=== PATIENT | female | born 1985 ===

== ENCOUNTER 2016-09-09 10:15 | Observation (INO) | payer BC, OTHER ==
[2016-09-05 12:38] VITALS: BMI 24.5
[2016-09-09 12:15] LABS: HEMATOCRIT 38.7 % (34.0-47.0); MEAN CELL VOLUME 85.5 fl (81.0-99.0); MEAN CORPUSCULAR HEMOGLOBIN 28.7 pg (27.0-31.0); MEAN CORPUSCULAR HGB CONC 33.6 g/dL (33.0-37.0); WHITE BLOOD COUNT 5.5 K/uL (4.8-10.8)
[2016-09-09] MEDS ORDERED: Propofol 10 mg/ml Inj (20 ML) ONE (14:09)
[2016-09-09] MEDS ORDERED: Midazolam 2 MG/2 ML VIAL ONE (14:10)
[2016-09-09] MEDS ORDERED: Lidocaine 2% MPF (5 ml) Inj ONE (14:11)
[2016-09-09] MEDS ORDERED: Succinylcholine 200 mg/10 ml Inj IV ONE (14:15)
[2016-09-09] MEDS ORDERED: Rocuronium 10 mg/ml (5 ml) ONE (14:15)
[2016-09-09] MEDS ORDERED: Bupivacaine 0.25%-Epinephrine 1:200,000 (30 ml) Inj ONE (14:16)
[2016-09-09] MEDS ORDERED: Methylene Blue 10 mg/ml (1ml) Inj ONE (14:30)
[2016-09-09] MEDS ORDERED: Vasopressin 20 Units/ml Inj ONE (14:31)
[2016-09-09] MEDS ORDERED: Desflurane Inhalation Anesthetic Liq (240 ml) ONE (16:36)
[2016-09-09] MEDS ORDERED: Neostigmine Methylsulfate 2 MG/2 ML ML IV ONE (16:42)
[2016-09-09] MEDS ORDERED: HYDROmorphone 0.5 mg/0.5 ml ISec IVP PRN (16:56)
[2016-09-09] MEDS ORDERED: DiphenhydrAMINE 50 mg/ml Inj IVP PRN (16:57)
[2016-09-09] MEDS ORDERED: Dexamethasone 4 mg/1 ml ONE (17:01)
[2016-09-09] MEDS ORDERED: HEMOSTATIC MATRIX 10 ML DIS.NEEDLE TOP ONE (17:30)
[2016-09-09] MEDS ORDERED: Lactated Ringer's 500 ML IV ONE (18:00)
[2016-09-09] MEDS ORDERED: Sodium Chloride 0.9% 1,000 ML IV ONE (18:00)
--- NOTE | 2016-09-09 18:02 | PCM.SURG1 ---
Surgeon's Initial Post Op Note - Surgeon's Notes Surgeon: valentine gudino md Lunch Truck Operator: kamila mitchell md Type of Anesthesia: General Endo, Local Pre-Operative Diagnosis: symptomatic fibroid uteurs. Abnormal uterine bleeding. Chronic pelvic pain. chronic anemia Operative Findings: massive fibroid uterus. degenerative myomas. normal bladder and ureters anatomy Post-Operative Diagnosis: symptomatic fibroid uteurs. Abnormal uterine bleeding. Chronic pelvic pain. chronic anemia Operation Performed: Robotic myomectomy > 5 myomas. laparotomy. Chromotubation. Cystoscopy. Detailed Operative Report. This is a 31 years old [place] female with an enlarged fibroid uterus, associated abnormal uterine bleeding and chronic pelvic pain and chronic anemia. Following complete workup at the office which included an ultrasound, as well as Pap smear a decision was made to proceeds with a robotic assisted myomectomy. A decision was made to proceed with robotic assisted myomectomy as conservative management failed and pt reports these symptoms as debilitating and affecting her quality of life. After proper consent was obtained from the patient was taken to the operating room where general anesthesia was obtained without difficulty. She was placed in dorsal lithotomy position her legs were placed in adjustable Mateo stirrups. Careful attention was placed not to over-flex or over -rotate the lower extremities at the hip or the knee joints. She was prepped and draped appropriately for robotic assisted myomectomy. Sanz catheter was inserted under sterile conditions. A standard size V-care uterine manipulator was inserted through the cervix and secured. A local anesthetic solution of quarter percent Marcaine was utilized to infiltrate the skin prior to any skin incision. A total of 15 mL of 0.25% Marcaine was utilized throughout the procedure. While tenting the abdominal wall a Verses needle was inserted through the umbilicus and pneumoperitoneum was obtained without difficulty. A small supra- umbilical 1 cm incision was made with a scalpel and a trocar and sleeve were introduced. Robotic camera was inserted and initial survey of the patient's abdomen revealed massively enlarged fibroid uterus with multiple large myomas extending from the fundal and anterior uterine wall. 3 robotic ports were utilized for this procedure. The first port was on the patient's right side approximately 7 cm above the right superior iliac crest. The second robotic port was inserted approximately 7 cm cephalic to the first port and approximately 9 cm lateral to the camera port. The third robotic port was in the patient's left side approximately 7 cm superior to the left superior iliac crest. An apartment assistant manager port was inserted about 7 cm left lateral to the camera ports. All robotic ports were approximately 7-8 mm in size, the apartment assistant manager and the camera port 1 cm in size. The apartment assistant manager as well as the camera ports were utilized the step trocars system. All trocars were inserted under direct visualization. The patient was placed in Trendelenburg position and the lateral side robotic docking was accomplished. The following instruments were utilized for this procedure: The PK sealing device was inserted on the left robotic port , monopolar mary as well as a Prograsp and robotic tenaculum were utilized on the right side robotic ports. Prior to the initiation of this procedure both ureters along their courses were visualized, peristalsing normally at the level of the pelvic brim. Following meticulous anterolysis, and prior to the excision of the myomas and lysis of adhesions, it was necessary to explore both ureters and their courses in order to avoid structural compromise to ureters. The peritoneum over pelvic sidewall was opened, the ureters were traced from the pelvic brain overlying the bifurcation of the iliac vessels and traced down towards the lower uterine segment bilaterally. Diluted Pitressin solution 40 units in 120 mL of saline was utilized to inject the base of all myomas seen prior to incision. Injection of petressin to the fundal and anterior wall of the uterus was needed to aid in hemostasis. A horizontal incision was made into the anterior uterine wall and an elliptical incision was completed to remove a cluster of large myomas. The incision was closed in multiple layers with 2-0 vlock in continues fashion. Good hemostasis noted. Meticulous and careful enterolysis as well as lysis of adhesions was completed in order to clear the anterior aspects of the uterus. An additional incision was made in the anterior uterine wall to enucleate a cluster of myomas in the anterior wall in a similar fashion following petressin injection to the fibroid capsules. The fundal incision was large to enucleate the large cluster of myomas and the endometrial cavity was entered in the process. Prior to the closure of the uterine wall, a 3-0 vlock was used to approximate the endometrial layer. All specimens were extracted at the end of the case from the patient abdomen and sent to pathology. Chromotubation performed at the end of the case revealed patent tubes bilaterally. Dilute methylene blue solution was injected from the cervix into the endometrial cavity and direct vis of the tubes showed minimal spillage of dye from both tubes. Due to the large myomas and small introitus, a small laparotomy was made to extract the myomas from the abdominal cavity. A small pffenestiel incision was made with a scalpel and carried to the rectus fascia, the fascia was entered in the midline and the incision extended. The rectus muscle and the peritoneal cavity entered. The myomas were all extracted and sent to pathology. The incision was closed in multiple layers. The fascia was closed with a o vycril suture in continuous fashion. The skin was closed with 4-0 monocryl sub Q fashion. FloSeal's as well as Interceed were applied to all incisions. Excellent hemostasis was noted throughout. All skin incisions were closed with skin manuel and Steri-Strips. Dermabond was applied to all incisions. The cameras as well as the apartment assistant manager port were closed in a fascia layer utilizing 2-0 Vicryl in an interrupted fashion. Due to the very close proximity to both ureters and the massive size of this fibroids as well as the distorted pelvic anatomy, a diagnostic cystoscopy was necessary to ascertain bladder and ureters. The Sanz catheter was removed the bladder was distended with approximately 300 mL of normal saline. A 30 cystoscope was inserted and a survey of the bladder perkins as well as ureteral orifices indicated effluxing ureters bilaterally, no compromise was noted to the bladder wall, the trigone as well as the urethra were normal appearing. Prior to incision patient received prophylactic antibiotics, prior to closure sponge lap and needle counts are correct x2. Patient tolerated the procedure well and was taken to recovery room in stable condition. Of note: This was an exceptionally difficult surgical procedure, requiring a high level of expertise in order to complete a large myomatous uterus and to lyse off tight bowel adhesions. Assisted by Dr. Mitchell who was essential to docking, retracting and providing bedside apartment assistant manager tasks during the case. Specimen/Specimens Removed: myomas >5 Estimated Blood Loss: EBL {In ML}: 20 Blood Products Given: N/A Drains Used: No Drains Post-Op Condition: Good Date of Surgery/Procedure: 09/09/16 Time of Surgery/Procedure: 18:02
[2016-09-09] MEDS: Lactated Ringer's 1,000 ML IV SCH (20:53)
[2016-09-10 07:12] LABS: BASO % 0.1 % (0.0-2.0); HEMATOCRIT 34.6 % (34.0-47.0); LYMPH # 0.6 K/uL (1.0-4.3); LYMPH % 5.2 % (20.0-40.0); MEAN CELL VOLUME 86.5 fl (81.0-99.0); MEAN CORPUSCULAR HEMOGLOBIN 28.4 pg (27.0-31.0); MEAN CORPUSCULAR HGB CONC 32.8 g/dL (33.0-37.0); MEAN PLATELET VOLUME 9.4 fl (7.2-11.7); MONO # 0.8 K/uL (0.0-0.8); MONO % 7.2 % (0.0-10.0); NEUT # 9.9 K/uL (1.8-7.0); NEUT % 87.5 % (50.0-75.0); PLATELET COUNT 206 K/uL (130-400); RED CELL DISTRIBUTION WIDTH 20.6 % (11.5-14.5); WHITE BLOOD COUNT 11.3 K/uL (4.8-10.8)
[2016-09-10 07:21] LABS: BLOOD UREA NITROGEN 7 mg/dl (7-17); CALCIUM 8.5 mg/dL (8.4-10.2); CARBON DIOXIDE 25 mmol/L (22-30); CHLORIDE 104 mmol/L (98-107); GFR AFRICAN-AMERICAN > 60; GLUCOSE,RANDOM 133 mg/dL (65-105); POTASSIUM 3.9 MMOL/L (3.6-5.0); SODIUM 140 mmol/l (132-148)
[2016-09-10] MEDS: Oxycodone/Acetaminophen 5/325 mg Tab PO PRN ×4 (08:23→22:02)
[2016-09-10 12:26] LABS: NEUTROPHIL 88 % (42-75); TOTAL CELLS COUNTED 100
[2016-09-10 12:27] LABS: GIANT PLATELETS PRESENT
--- NOTE | 2016-09-10 17:54 | CP.PCM.DIS ---
Provider - Provider Date of Admission: 09/09/16 18:03 Attending physician: Vanessa Ames MD Primary care physician: Teri Davison DO Time Spent in preparation of Discharge (in minutes): 20 Diagnosis - Discharge Diagnosis (1) Fibroid uterus Status: Resolved (2) Myoma Status: Resolved Hospital Course - Lab Results Lab Results: Most Recent Lab Values WBC 11.3 K/uL (4.8-10.8) H D 09/10/16 06:40 RBC 4.00 Mil/uL (3.80-5.20) 09/10/16 06:40 Hgb 11.3 g/dL (12.0-16.0) L 09/10/16 06:40 Hct 34.6 % (34.0-47.0) 09/10/16 06:40 MCV 86.5 fl (81.0-99.0) 09/10/16 06:40 MCH 28.4 pg (27.0-31.0) 09/10/16 06:40 MCHC 32.8 g/dL (33.0-37.0) L 09/10/16 06:40 RDW 20.6 % (11.5-14.5) H 09/10/16 06:40 Plt Count 206 K/uL (130-400) 09/10/16 06:40 MPV 9.4 fl (7.2-11.7) 09/10/16 06:40 Neut % (Auto) 87.5 % (50.0-75.0) H 09/10/16 06:40 Lymph % (Auto) 5.2 % (20.0-40.0) L 09/10/16 06:40 Hettinger % (Auto) 7.2 % (0.0-10.0) 09/10/16 06:40 Eos % (Auto) 0.0 % (0.0-4.0) 09/10/16 06:40 Baso % (Auto) 0.1 % (0.0-2.0) 09/10/16 06:40 Neut # 9.9 K/uL (1.8-7.0) H 09/10/16 06:40 Lymph # 0.6 K/uL (1.0-4.3) L 09/10/16 06:40 Hettinger # 0.8 K/uL (0.0-0.8) 09/10/16 06:40 Eos # 0.0 K/uL (0.0-0.7) 09/10/16 06:40 Baso # 0.0 K/uL (0.0-0.2) 09/10/16 06:40 Neutrophils % (Manual) 88 % (42-75) H 09/10/16 06:40 Lymphocytes % (Manual) 8 % (20-50) L 09/10/16 06:40 Monocytes % (Manual) 4 % (0-10) 09/10/16 06:40 Toxic Granulation Present 09/10/16 06:40 Platelet Estimate Normal (NORMAL) 09/10/16 06:40 Giant Platelets Present 09/10/16 06:40 Hypochromasia (manual) Slight 09/10/16 06:40 Anisocytosis (manual) Moderate 09/10/16 06:40 Ovalocytes Slight 09/10/16 06:40 Sodium 140 mmol/l (132-148) 09/10/16 06:40 Potassium 3.9 MMOL/L (3.6-5.0) 09/10/16 06:40 Chloride 104 mmol/L (98-107) 09/10/16 06:40 Carbon Dioxide 25 mmol/L (22-30) 09/10/16 06:40 Anion Gap 15 (10-20) 09/10/16 06:40 BUN 7 mg/dl (7-17) 09/10/16 06:40 Creatinine 0.6 mg/dL (0.7-1.2) L 09/10/16 06:40 Est GFR ( Amer) > 60 09/10/16 06:40 Est GFR (Non-Af Amer) > 60 09/10/16 06:40 Random Glucose 133 mg/dL (65-105) H 09/10/16 06:40 Calcium 8.5 mg/dL (8.4-10.2) 09/10/16 06:40 Blood Type A POSITIVE 09/09/16 11:51 Blood Type Confirm A POSITIVE 09/09/16 12:00 Antibody Screen Negative 09/09/16 11:51 BBK History Checked No verified bt 09/09/16 11:51 - Hospital Course Hospital Course: 31f Presented to [facility] for Robotic myomectomy. Pt did well after surgery and was able to be discharged the next day. Discharge Exam - Head Exam Head Exam: ATRAUMATIC, NORMOCEPHALIC - Eye Exam Eye Exam: EOMI. absent: Scleral icterus - ENT Exam ENT Exam: Mucous Membranes Moist - Respiratory Exam Respiratory Exam: NORMAL BREATHING PATTERN. absent: Respiratory Distress - GI/Abdominal Exam GI & Abdominal Exam: Guarding (mild), Soft, Tenderness (appropriate at incision sites). absent: Distended, Firm, Rigid Additional comments: incisions and dressing C/D/I - Extremities Exam Extremities exam: normal capillary refill, pedal pulses present - Neurological Exam Neurological exam: Alert, Oriented x3 - Psychiatric Exam Psychiatric exam: Normal Affect, Normal Mood - Skin Skin Exam: Dry, Warm Discharge Plan - Follow Up Plan Condition: GOOD Disposition: HOME/ ROUTINE Additional Instructions: Follow up with Dr. Ames in 2 weeks. No heavy lifting more than 10 lbs for 2 weeks Regular Diet Ok to shower 24 hours after surgery Call for fever more than 101 or pain uncontrolled by meds Referrals: Teri Davison DO [Primary Care Provider] -
[2016-09-10] MEDS: Lactated Ringer's 1,000 ML IV SCH (22:18)
[2016-09-11 08:43] VITALS: BP 102/66; PULSE 69; RESP 18; TEMP 99.2; O2SAT 97
--- NOTE | 2016-09-11 10:03 | CP.PCM.DIS ---
Provider - Provider Date of Admission: 09/10/16 19:34 Attending physician: Vanessa Ames MD Primary care physician: Teri Davison DO Time Spent in preparation of Discharge (in minutes): 20 Diagnosis - Discharge Diagnosis (1) Fibroid uterus Status: Resolved (2) Myoma Status: Resolved Hospital Course - Lab Results Lab Results: Most Recent Lab Values WBC 11.3 K/uL (4.8-10.8) H D 09/10/16 06:40 RBC 4.00 Mil/uL (3.80-5.20) 09/10/16 06:40 Hgb 11.3 g/dL (12.0-16.0) L 09/10/16 06:40 Hct 34.6 % (34.0-47.0) 09/10/16 06:40 MCV 86.5 fl (81.0-99.0) 09/10/16 06:40 MCH 28.4 pg (27.0-31.0) 09/10/16 06:40 MCHC 32.8 g/dL (33.0-37.0) L 09/10/16 06:40 RDW 20.6 % (11.5-14.5) H 09/10/16 06:40 Plt Count 206 K/uL (130-400) 09/10/16 06:40 MPV 9.4 fl (7.2-11.7) 09/10/16 06:40 Neut % (Auto) 87.5 % (50.0-75.0) H 09/10/16 06:40 Lymph % (Auto) 5.2 % (20.0-40.0) L 09/10/16 06:40 R[place]con % (Auto) 7.2 % (0.0-10.0) 09/10/16 06:40 Eos % (Auto) 0.0 % (0.0-4.0) 09/10/16 06:40 Baso % (Auto) 0.1 % (0.0-2.0) 09/10/16 06:40 Neut # 9.9 K/uL (1.8-7.0) H 09/10/16 06:40 Lymph # 0.6 K/uL (1.0-4.3) L 09/10/16 06:40 [place] # 0.8 K/uL (0.0-0.8) 09/10/16 06:40 Eos # 0.0 K/uL (0.0-0.7) 09/10/16 06:40 Baso # 0.0 K/uL (0.0-0.2) 09/10/16 06:40 Neutrophils % (Manual) 88 % (42-75) H 09/10/16 06:40 Lymphocytes % (Manual) 8 % (20-50) L 09/10/16 06:40 Monocytes % (Manual) 4 % (0-10) 09/10/16 06:40 Toxic Granulation Present 09/10/16 06:40 Platelet Estimate Normal (NORMAL) 09/10/16 06:40 Giant Platelets Present 09/10/16 06:40 Hypochromasia (manual) Slight 09/10/16 06:40 Anisocytosis (manual) Moderate 09/10/16 06:40 Ovalocytes Slight 09/10/16 06:40 Sodium 140 mmol/l (132-148) 09/10/16 06:40 Potassium 3.9 MMOL/L (3.6-5.0) 09/10/16 06:40 Chloride 104 mmol/L (98-107) 09/10/16 06:40 Carbon Dioxide 25 mmol/L (22-30) 09/10/16 06:40 Anion Gap 15 (10-20) 09/10/16 06:40 BUN 7 mg/dl (7-17) 09/10/16 06:40 Creatinine 0.6 mg/dL (0.7-1.2) L 09/10/16 06:40 Est GFR ( Amer) > 60 09/10/16 06:40 Est GFR (Non-Af Amer) > 60 09/10/16 06:40 Random Glucose 133 mg/dL (65-105) H 09/10/16 06:40 Calcium 8.5 mg/dL (8.4-10.2) 09/10/16 06:40 Blood Type A POSITIVE 09/09/16 11:51 Blood Type Confirm A POSITIVE 09/09/16 12:00 Antibody Screen Negative 09/09/16 11:51 BBK History Checked No verified bt 09/09/16 11:51 - Hospital Course Hospital Course: 31f Presented to [facility] for Robotic myomectomy. Pt did well after surgery and was able to be discharged on POD#2 after being kept for pain management. Discharge Exam - Head Exam Head Exam: ATRAUMATIC, NORMOCEPHALIC - Eye Exam Eye Exam: EOMI. absent: Scleral icterus - ENT Exam ENT Exam: Mucous Membranes Moist - Respiratory Exam Respiratory Exam: NORMAL BREATHING PATTERN. absent: Respiratory Distress - Cardiovascular Exam Cardiovascular Exam: RRR, +S1, +S2 - GI/Abdominal Exam GI & Abdominal Exam: Guarding (mild), Soft, Tenderness (appropriate at incision sites). absent: Distended, Firm, Rigid Additional comments: incisions and dressing C/D/I - Extremities Exam Extremities exam: normal capillary refill, pedal pulses present - Neurological Exam Neurological exam: Alert, Oriented x3 - Psychiatric Exam Psychiatric exam: Normal Affect, Normal Mood - Skin Skin Exam: Dry, Warm Discharge Plan - Follow Up Plan Condition: GOOD Disposition: HOME/ ROUTINE Additional Instructions: Follow up with Dr. Ames in 2 weeks. No heavy lifting more than 10 lbs for 2 weeks Regular Diet Ok to shower 24 hours after surgery Call for fever more than 101 or pain uncontrolled by meds Referrals: Teri Davison DO [Primary Care Provider] -
[2016-09-11] MEDS: Oxycodone/Acetaminophen 5/325 mg Tab PO PRN (11:32)
== END 2016-09-11 11:56 | disposition home or self-care (01) ==
LOC: H.OPSURG 10:15 → H.PEDS 18:03 → UNDOADMOB 18:03 → H.PEDS 20:14 → INTOOBSV 09-10 19:34 → OBSVTOIN 09-10 19:34 → UNDODISIN 09-11 11:56 → H.OPSURG 09-11 11:56
PROVIDERS: ADMIT Obstetrics & Gynecology; ATTEND Obstetrics & Gynecology
PROC: 3E0P7KZ Introduction of Other Diagnostic Substance into Female Reproductive, Via Natural or Artificial Opening (ICD-10-PCS; 2016-09-09)
PROC: 0TJB8ZZ Inspection of Bladder, Via Natural or Artificial Opening Endoscopic (ICD-10-PCS; 2016-09-09)
PROC: 0UB90ZZ Excision of Uterus, Open Approach (ICD-10-PCS; principal; 2016-09-09 12:45)
PROC: 8E0W0CZ Robotic Assisted Procedure of Trunk Region, Open Approach (ICD-10-PCS; 2016-09-09 12:45)
DX: D25.9 Leiomyoma of uterus, unspecified (principal); D50.0 Iron deficiency anemia secondary to blood loss (chronic); G89.29 Other chronic pain; N93.9 Abnormal uterine and vaginal bleeding, unspecified
CPT/HCPCS: 36415; 58546; 80048; 85025; 85027; 86850; 86900; 88305; 96374; 96376; G0378; J0330; J0690; J1100; J1170; J1885; J2250; J2270; J2405; J2704; J2710; J2765; J3010; J7040; J7120; Q9968